=== PATIENT | male | born 1995 | race Caucasian/White ===

== ENCOUNTER 2018-11-27 01:19 | Emergency (ER) | payer BC, SELFPAY ==
[2018-11-27 01:19] VITALS: BP 153/106; PULSE 81; RESP 16; TEMP 36.7; O2SAT 98; BMI 30.3
--- NOTE | 2018-11-27 01:32 | EKG12_ITS ---
Test Reason : CP Blood Pressure : / mmHG Vent. Rate : 076 BPM Atrial Rate : 076 BPM P-R Int : 162 ms QRS Dur : 084 ms QT Int : 360 ms P-R-T Axes : 022 -13 035 degrees QTc Int : 405 ms Normal sinus rhythm Normal ECG Confirmed by KELBY ORTEGA MD ([id number]), photo editor PARIS PIERRE ([id number]) on 12/01/2018 8:45:43 AM Referred By: Confirmed By:KELBY ORTEGA MD
--- NOTE | 2018-11-27 01:34 | ED.DCSUM_ITS ---
- ER Visit Summary Date of Service: 11/27/18 Chief Complaint: [] Chest pain History of Present Illness: The patient is a 23 M chest pain 1-1/2 hours ago gradual onset at rest continuous sharp pain in his upper chest. It is movement related. When he moves his shoulder blades forwards and backwards he is able to reproduce it. No home treatment. No associated symptoms. No cardiovascular PE or dissection risk factors. He is never had this before. Physical Examination: Vital signs reviewed General: Well-nourished well-developed Head: Normocephalic atraumatic Eyes: Pupils equal round and reactive to light extraocular movements intact ENT: TMs clear no hemotympanum no trauma Neck: Nontender full range of motion Cardiovascular: Regular rate rhythm no murmurs normal S1-S2 Respiratory: No distress clear to auscultation bilaterally chest tenderness. Worse with movement of his shoulders forward and backward. No bony crepitus or step-offs Abdomen: Soft nontender nondistended normal bowel sounds no masses Back: Nontender no CVA tenderness Extremities: Nontender active range of motion ?4 extremities no trauma Skin: Normal color no trauma Neuro alert oriented cranial nerves II through XII intact normal strength sensation reflexes Test Results: [] Emergency Department Course and Treatment: [] EKG shows sinus rhythm at 76 without ischemic findings. Patient given ibuprofen. Chest x-ray obtained. X- ray normal. At this time I think this is reproducible chest wall pain. We will follow-up as an outpatient. Continue anti-inflammatories. He has no risk factors for heart disease or PE. Resting comfortably. I feel this is easily reproducible Treatment Plan: [] Disposition: [] Impression: [] Chest wall pain This note was generated with [employer] dictation software. It may contain incorrect words, spelling, and punctuation that were not noted in review of the chart prior to signing ED Disposition - Plan for ED Patient: Chief Complaint: Chest Pain Referrals: Care Physician,No Primary [Primary Care Provider] -
--- NOTE | 2018-11-27 01:40 | RAD_ITS ---
STUDY: X-RAY CHEST REASON FOR EXAM: Male, 23 years old. Chest pain TECHNIQUE: PA and lateral COMPARISON: None. FINDINGS: The lungs are clear and expanded. There is no demonstrated pleural abnormality. Normal size heart. Normal mediastinum and ever. Normal visualized pulmonary arteries. Normal visualized aortic arch and descending thoracic aorta. Normal visualized thoracic spine. Normal visualized ribs, clavicles, and shoulders. There is no demonstrated abnormality of the visualized soft tissue structures of the upper abdomen. RAD/Chest PA and Lateral IMPRESSION: Normal x-ray examination of the chest. Electronically Signed: Rex Garcia MD at 2:44 EST , Service support ,
[2018-11-27] MEDS: Ibuprofen 400 MG Tablet 800 MG PO (01:45)
--- NOTE | 2018-11-27 02:04 | ED.DEP ---
ED Disposition - Plan for ED Patient: Disposition: Home or Assisted Living Chief Complaint: Chest Pain Instructions: ED Strain Chest Wall Referrals: Care Physician,No Primary [Primary Care Provider] - Jacques Gramajo DO [NON CLINICAL AFFILIATE] -
[2018-11-27 02:07] VITALS: BP 155/126; PULSE 87; RESP 16; O2SAT 100
== END 2018-11-27 02:17 | disposition home or self-care (01) ==
LOC: ED 02:16
PROVIDERS: Emergency Provider Emergency Medicine
DX: R07.89 Other chest pain (principal)
CPT/HCPCS: 71046; 93005; 99284